=== PATIENT | female | born 1990 | race Caucasian/White ===

== ENCOUNTER 2024-03-27 17:17 | Emergency (ER) | payer OTHER ==
[~2024-03-27] VITALS: Ht 157.5 cm; Wt 64.0 kg
[2024-03-27 17:36] VITALS: BP 121/90; PULSE 85; RESP 16; TEMP 36.7; O2SAT 98
[2024-03-27] MEDS ORDERED: IBUP-2029 MT (22:56)
== END 2024-03-27 23:32 | disposition home or self-care (01) ==
LOC: ER 17:17
DX: S93.402A Sprain of unspecified ligament of left ankle, initial encounter (principal); W01.0XXA Fall on same level from slipping, tripping and stumbling without subsequent striking against object, initial encounter; Y93.89 Activity, other specified; Y92.89 Other specified places as the place of occurrence of the external cause; Y99.8 Other external cause status
CPT/HCPCS: 73610; 99283

== ENCOUNTER 2024-03-29 15:45 | Emergency (ER) | payer OTHER ==
[~2024-03-29] VITALS: Ht 157.5 cm; Wt 63.5 kg
[~2024-03-29 15:45] MED LIST: IBUP-2029 MT
[2024-03-29 16:21] VITALS: O2SAT 98
[2024-03-29 21:21] VITALS: BP 123/84; PULSE 81; RESP 16; TEMP 36.9; O2SAT 100
== END 2024-03-29 21:22 | disposition home or self-care (01) ==
LOC: ER 15:45
DX: S93.402A Sprain of unspecified ligament of left ankle, initial encounter (principal); X50.9XXA Other and unspecified overexertion or strenuous movements or postures, initial encounter; Y93.89 Activity, other specified; Y92.89 Other specified places as the place of occurrence of the external cause; Y99.8 Other external cause status
CPT/HCPCS: 73610; 99283